=== PATIENT | male | born 1955 | race African-American/Black ===

== ENCOUNTER 2016-12-23 08:01 | Day surgery (SDC) | payer BC ==
[2016-12-23] MEDS ORDERED: SIMETHICONE 40 MG/0.6 ML ML ONE (08:44)
[2016-12-23] MEDS ORDERED: MEPERIDINE HCL/PF 100 MG/ML AMP ONE (08:58)
[2016-12-23] MEDS ORDERED: MIDAZOLAM HCL 5 MG/5 ML VIAL ONE (08:58)
[2016-12-23 11:12] VITALS: BP 116/72; PULSE 78; RESP 14
== END 2016-12-23 11:23 | disposition home or self-care (01) ==
LOC: SDS 08:01 → SMU 08:12 → SDS 11:23
PROVIDERS: ATTEND Colon & Rectal Surgery
DX: Z12.11 Encounter for screening for malignant neoplasm of colon (principal); K57.30 Diverticulosis of large intestine without perforation or abscess without bleeding; Z86.010 Personal history of colon polyps
CPT/HCPCS: 45378; J2175; J2250; J7030